=== PATIENT | male | born 1970 | race Caucasian/White ===

== ENCOUNTER 2018-08-12 10:38 | Day surgery (SDC) | payer OTHER ==
[~2018-08-12 10:38] MED LIST: CEFAZOLIN 2 GM/50 ML (PMX) 50 ML IVPB; DESFLURANE 15 MIN
[2018-08-12] MEDS: SOD CHLORIDE 0.9% 1,000 ML IV (11:10)
[2018-08-12] MEDS ORDERED: PROPOFOL 20 ML (12:32)
[2018-08-12] MEDS ORDERED: MIDAZOLAM 1 MG/ML 2 ML INJ (12:32)
[2018-08-12] MEDS ORDERED: ROCURONIUM 50 MG INJ (12:32)
[2018-08-12] MEDS ORDERED: SUCCINYLCHOLINE CHLORIDE 100 MG/5 ML SYG IV (12:32)
[2018-08-12] MEDS ORDERED: KETOROLAC 30 MG INJ (12:33)
[2018-08-12] MEDS ORDERED: CEFAZOLIN 1 GM INJ (12:33)
[2018-08-12] MEDS ORDERED: ONDANSETRON 4 MG INJ (12:33)
[2018-08-12] MEDS: BUPIVACAINE 0.25%/EPI (SDV) 30 ML INJ (13:29)
[2018-08-12] MEDS: POLYMYXIN/BACITRACIN 1L IRRIG (13:29)
[2018-08-12] MEDS ORDERED: GLYCOPYRROLATE 0.4 MG INJ (13:31)
[2018-08-12] MEDS ORDERED: NEOSTIGMINE 3 MG/3 ML SYRINGE (13:31)
[2018-08-12] MEDS ORDERED: IBUPROFEN 600 MG TAB PO (14:30)
[2018-08-12] MEDS ORDERED: morphine 2 MG INJ IV (14:30)
[2018-08-12] MEDS ORDERED: HYDROCODONE/APAP (5/325) TAB PO (14:30)
[2018-08-12] MEDS ORDERED: OXYCODONE/ACETAMINOPHEN (5/325) TAB PO (14:30)
[2018-08-12] MEDS ORDERED: ONDANSETRON 4 MG INJ IV ×2 (14:30)
[2018-08-12] MEDS ORDERED: HYDROmorphONE 1 MG/5 ML IV SYRINGE IV (14:30)
[2018-08-12] MEDS: HYDROCODONE/APAP (5/325) TAB PO (14:49)
[2018-08-12] MEDS: KETOROLAC 30 MG INJ IV (14:49)
[2018-08-12] MEDS: MEPERIDINE 25 MG INJ IV (14:49)
== END 2018-08-12 16:13 | disposition home or self-care (01) ==
LOC: SDS 10:38
DX: K42.9 Umbilical hernia without obstruction or gangrene (principal)
CPT/HCPCS: 49585; 88302